=== PATIENT | male | born 1950 | race Caucasian/White ===

== ENCOUNTER 2023-09-12 14:16 | Outpatient (AMB) | payer MEDICARE, OTHER, SELFPAY ==
--- NOTE | 2023-09-12 14:28 | A.OFFPC_ITS ---
Vital Signs 09/12/23 14:34 Height 6 ft Weight 224 lb 6 oz BMI 30.4 BP 126/74 Blood Pressure Location Rt brachial Position Sitting Respiration 16 Pulse 90 Pulse Source Pulse Oximeter Temp 98.1 F Temp Source Oral Pulse Oximetry (%) 98 Oxygen Delivery Method Room Air Intake Visit Reasons: Est Care Back pain Intake Note: New patient visit. 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 Allergies No Known Allergies Allergy (Verified 09/12/23 14:28) Medication List - Last Reconciled 09/12/23 by Trudy Lares MD amlodipine 5 mg PO DAILY atorvastatin 20 mg PO DAILY gabapentin 1 cap oral am, 1 cap oral am afternoon 2 cap oral prior to bed orally 3 times a day; 30 days lisinopril 40 mg PO DAILY prednisone 40 mg (2 x 20 mg) PO DAILY 5 days sertraline 25 mg PO DAILY tramadol 50 mg PO DAILY Tobacco use date assessed: 09/12/23 Fall risk assessment: 1 Fall in past year Last assessed Fall Risk: 09/12/23 Dental Screening Dental Screen Date: 09/12/23 Did you have a dental visit in the last 12 months?: Yes Did you have a dental problem in the last 6 months where you did not have access to dental care?: No Was dental information given to patient?: Patient has dentist HPI HPI Comments History of Present Illness Details The patient is a 73 year old male with a past medical history of hypertension, hyperlipidemia, lumbar ddd, presenting for follow up. CV: on amlodipine 5mg daily, lisinopril 20mg daily. Denies chest pain, exertional dyspnea. No LE edema Patient has had multiple lumbar back surgeries in the past, the most recent with Dr Vergara in 2020. He slipped on the ice three months ago and immediately felt pain in the low back and left buttock. He continues to have left lower back pain with radiation down the left buttock and leg. He is unable to sit for longer than a few minutes. He endorses clumsiness of the left foot which has made him trip on occasion. His left plantar and dorsiflexion are noticeably weak on exam. He has been taking OTC medication with little relief. He has trouble sleeping at night. He denies b/b incontinence. He does endorse increased urination for the past 2-3 months. He has seen urology for this. BH: On zoloft 25mg daily. He is not fond of taking this. Denies SE. [facility] Medical History (Updated 09/12/23 @ 15:49 by Trudy Lares MD) Carpal tunnel syndrome on both sides Family History (Updated 09/12/23 @ 15:19 by Elida Reynoso CMA) Other Substance use Social History (Updated 09/12/23 @ 15:19 by Elida Reynoso CMA) Housing: House Patient Tobacco Use Status: Current everyday Tobacco user Tobacco use type: Cigarette Years Smoked: 56 e-Cigarette/Vaping Use: Never Used Second Hand Smoke Exposure: No service: Yes Current occupational status: employed and retired Current occupation: semi retired Current occupational exposures/hazards: No Cognitive needs: No Hearing needs: No Vision needs: No Questionnaire PHQ-9 Over the last 2 weeks, how often have you been bothered by any of the following problems? 1. Little interest or pleasure in doing things: not at all 2. Feeling down, depressed, or hopeless: not at all 3. Trouble falling or staying asleep, or sleeping too much: not at all 4. Feeling tired or having little energy: not at all 5. Poor appetite or overeating: not at all 6. Feeling bad about yourself - or that you are a failure or have let yourself or your family down: not at all 7. Trouble concentrating on things, such as reading the newspaper or watching television: not at all 8. Moving or speaking so slowly that other people could have noticed. Or the opposite - being so fidgety or restless that you have been moving around a lot more than usual: not at all 9. Thoughts that you would be better off or of hurting yourself in some way: not at all Total score: 0 Depression Screening Interpretation: Negative (neg) Depression Screening Done: Yes 96073 - PHQ-9 Billing: Yes Source: Developed by Drs. Sonido Williamson, Shelia Boles, Barney Alegria and colleagues, with an educational abigail from [employer]. Thrive Questionnaire Date Thrive assessed: 09/12/23 I am a: Patient What is your living situation today?: I have a steady place to live Within the past 12 months, did the food you bought not last and you didn't have the money to get more?: Never true Within the past 12 months, did you worry whether your food would run out before you got money to buy more?: Never true Do you have trouble paying for medicines?: No Do you have trouble getting transportation to medical appointments?: No Do you have trouble paying your heating and electricity bill?: No Do you have trouble taking care of your child, family member or friend?: No Do you have trouble with day-to-day activities such as bathing, preparing meals, shopping, managing finances, etc.?: No Are you currently unemployed and looking for a job?: No Are you interested in more education?: No Please select the resources that you would like help with: None Currently or been in a relationship where the following occur: no concerns reported THRIVE Score: 0 AUDIT C Alcohol Use Questionnaire (AUDIT-C) 1. How often do you have a drink containing alcohol?: Never 3. How often do you have six or more drinks on one occasion?: Never Total Score: 0 CADEN-7 AMB Questionnaire CADEN-7 Date CADEN - 7 assessed: 09/12/23 Feeling nervous, anxious, or on edge: 0 = Not at all Not being able to stop or control worryin = Not at all Worrying too much about different things: 0 = Not at all Trouble relaxin = Not at all Being so restless that it is hard to sit still: 0 = Not at all Becoming easily annoyed or irritable: 0 = Not at all Feeling afraid as if something awful might happen: 0 = Not at all Total CADEN-7 score (0-4 normal; 5-9 mild; 10-14 moderate; 15-21 severe): 0 Source: Developed by Drs. Sonido Williamson, Shelia Boles, Barney Alegria and colleagues, with an educational abigail from [employer]. CADEN-7 Assessment Billing CADEN-7 Assessment Tool: CADEN-7 Assessment 48010 Review of Systems Const Details: ROS CONSTITUTIONAL: Denies weight loss, fever and chills. HEENT: Denies changes in vision and hearing. RESPIRATORY: Denies SOB and cough. CV: Denies palpitations and CP GI: Denies abdominal pain, nausea, vomiting and diarrhea. : Denies dysuria and urinary frequency. MSK: see HPI SKIN: Denies rash and pruritus. NEUROLOGICAL: Denies headache PSYCHIATRIC: Denies recent changes in mood. Physical exam (Primary Care) Vital Signs: Last Vital Signs Temp 98.1 F 09/12/23 14:34 Pulse 90 09/12/23 14:34 Resp 16 09/12/23 14:34 BP 126/74 09/12/23 14:34 Pulse Ox 98 09/12/23 14:34 Oxygen Delivery Method Room Air 09/12/23 14:34 PHYSICAL EXAM: GENERAL: Alert and oriented x 3. NAD EYES: EOMI. Anicteric. HENT: Moist mucous membranes. No scleral icterus. No cervical lymphadenopathy. LUNGS: Clear to auscultation bilaterally. CARDIOVASCULAR: Regular rate and rhythm. No murmur. No JVD. ABDOMEN: Soft, non-tender +bs EXTREMITIES: No edema. Non-tender. SKIN: No rashes or lesions. Warm. NEUROLOGIC: Back nttp, mild SI joint pain on palpation, 2/5 left dorsiflexion, 4/5 left plantar flexion PSYCHIATRIC: Cooperative. Appropriate mood and affect BMI result Body Mass Index 30.4 Tobacco/Smoking Status: Tobacco use Status Tobacco use date assessed 09/12/23 09/12/23 14:37 Patient Tobacco Use Status Current everyday Tobacco 09/12/23 14:37 Tobacco use type Cigarette 09/12/23 14:37 e-Cigarette/Vaping Use Never Used 09/12/23 14:37 PHQ-9: PHQ-9 Score PHQ-9: Total score 0 09/12/23 15:23 Depression Screening Interpretation: Negative (neg) Thrive Assessment: Date of Thrive Assessment Date Thrive assessed 09/12/23 09/12/23 15:23 Currently or been in a relationship where the following occur: no concerns reported Assessment and Plan Assessment & Plan (1) Hypertension: Comment: controlled on current medications. Reduce salt diet recommended Code(s): I10 - Essential (primary) hypertension Qualifiers: Hypertension type: primary hypertension Qualified Code(s): I10 - Essential (primary) hypertension (2) Hyperlipidemia: Comment: continue statin Code(s): E78.5 - Hyperlipidemia, unspecified Qualifiers: Hyperlipidemia type: mixed hyperlipidemia Qualified Code(s): E78.2 - Mixed hyperlipidemia (3) Lumbosacral radiculopathy at L5: Comment: Lumbosacral weakness & pain. History of lumbar surgery. MRI with contrast ordered. Gabapentin sent. Tramadol sparing as needed-discussed SE profile Code(s): M54.17 - Radiculopathy, lumbosacral region Orders: Orders MR lumbar spine w con Today M54.17 - Radiculopathy, lumbosacral region, R35.0 - Frequency of micturition Medications: New gabapentin 1 cap oral am, 1 cap oral am afternoon 2 cap oral prior to bed orally 3 times a day; 30 days 120 caps 3RF tramadol 50 mg PO DAILY 20 tabs 0RF prednisone 40 mg (2 x 20 mg) PO DAILY 5 days 10 tabs 0RF Coding Level of Care Code Est Pt Level 5 (28430) Complex EM visit Add On G2211 Diagnoses Primary hypertension I10 Hypertension type: primary hypertension Mixed hyperlipidemia E78.2 Hyperlipidemia type: mixed hyperlipidemia Lumbosacral radiculopathy at L5 M54.17 Additional Codes CADEN-7 Assessment Billing - CADEN-7 Assessment Tool: CADEN-7 Assessment 51401 ([id number]) Time Spent (min) 52
[2023-09-12 14:34] VITALS: BP 126/74; PULSE 90; RESP 16; TEMP 36.7; O2SAT 98; BMI 30.4
== END 2023-09-12 15:56 | disposition home or self-care (01) ==
PROVIDERS: PCP Internal Medicine; Visit Provider Internal Medicine
DX: I10 Essential (primary) hypertension (principal); E78.2 Mixed hyperlipidemia; M54.17 Radiculopathy, lumbosacral region
CPT/HCPCS: 99215; G2211

== ENCOUNTER 2024-02-03 09:58 | Outpatient (REF) | payer MEDICARE, OTHER, SELFPAY ==
[2024-02-08 13:48] LABS: Cotinine <2 ng/mL; Nicotine <2 ng/mL
== END 2024-02-03 09:59 | disposition home or self-care (01) ==
LOC: HO.WFDLDS 09:58
PROVIDERS: Visit Provider Nurse Practitioner Family
DX: F17.200 Nicotine dependence, unspecified, uncomplicated (principal)
CPT/HCPCS: 36415; 80323

== ENCOUNTER 2024-02-07 08:30 | Outpatient (AMB) | payer MEDICARE, OTHER, SELFPAY ==
[2024-02-07 08:33] VITALS: BP 139/67; PULSE 82; RESP 12; TEMP 36.3; O2SAT 97; BMI 31.5
--- NOTE | 2024-02-07 08:33 | MHC.PC.OV ---
Vital Signs 02/07/24 08:33 Height 6 ft Weight 232 lb BMI 31.5 BP 139/67 Blood Pressure Location Rt brachial Position Sitting Respiration 12 Pulse 82 Pulse Source Pulse Oximeter Temp 97.3 F Temp Source Temporal Artery Scan Pulse Oximetry (%) 97 Oxygen Delivery Method Room Air Intake Visit Reasons: pre op back issues Intake Note: Patient is here for a pre-op exam. Patient needs an ekg and labs completed today. 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 No known CAD, asthma/copd, NICOLETTE, diabetes or CKD. CV: On amlodipine 5mg daily, lisinopril 20mg daily. Blood pressure is adequately controlled. Denies chest pain, exertional dyspnea. No LE edema. EKG sinus bradycardia @ 53 with 1st degree AV block. He can climb 2 flights of stairs without difficulty. Walking is limited by back pain Patient has had multiple lumbar back surgeries in the past, the most recent with Dr Vergara in 2020. He slipped on the ice earlier this and immediately felt pain in the low back and left buttock. He continues to have left lower back pain with radiation down the left buttock and leg. He is unable to sit for longer than a few minutes. He endorses clumsiness of the left foot which has made him trip on occasion. His left plantar and dorsiflexion are noticeably weak on exam. He is currently stable with percocet, gabapentin BH: On zoloft 25mg daily. ROS CONSTITUTIONAL: Denies weight loss, fever and chills. HEENT: Denies changes in vision and hearing. RESPIRATORY: Denies SOB and cough. CV: Denies palpitations and CP GI: Denies abdominal pain, nausea, vomiting and diarrhea. : Denies dysuria and urinary frequency. MSK: Denies new myalgia and joint pain. SKIN: Denies rash and pruritus. NEUROLOGICAL: Denies headache PSYCHIATRIC: Denies recent changes in mood. PHYSICAL EXAM: GENERAL: Alert and oriented x 3. NAD EYES: Anicteric. HENT: Moist mucous membranes. No scleral icterus. No cervical lymphadenopathy. LUNGS: Clear to auscultation bilaterally. CARDIOVASCULAR: Regular rate and rhythm. No murmur. No JVD. ABDOMEN: Soft, non-tender +bs EXTREMITIES: No edema. Non-tender. SKIN: No rashes or lesions. Warm. NEUROLOGIC: No focal neurological deficits. CN II-XII grossly intact PSYCHIATRIC: Cooperative. Appropriate mood and affect [facility] Medical History Carpal tunnel syndrome on both sides Family History Other Substance use Social History Housing: House Patient Tobacco Use Status: Former Tobacco user Years Smoked: 56 e-Cigarette/Vaping Use: Never Used Second Hand Smoke Exposure: No service: Yes Current occupational status: employed and retired Current occupation: semi retired Current occupational exposures/hazards: No Cognitive needs: No Hearing needs: No Vision needs: No Questionnaire PHQ-9 Over the last 2 weeks, how often have you been bothered by any of the following problems? 1. Little interest or pleasure in doing things: not at all 2. Feeling down, depressed, or hopeless: not at all 3. Trouble falling or staying asleep, or sleeping too much: not at all 4. Feeling tired or having little energy: not at all 5. Poor appetite or overeating: not at all 6. Feeling bad about yourself - or that you are a failure or have let yourself or your family down: not at all 7. Trouble concentrating on things, such as reading the newspaper or watching television: not at all 8. Moving or speaking so slowly that other people could have noticed. Or the opposite - being so fidgety or restless that you have been moving around a lot more than usual: not at all 9. Thoughts that you would be better off or of hurting yourself in some way: not at all Total score: 0 Depression Screening Interpretation: Negative (neg) Depression Screening Done: Yes 27867 - PHQ-9 Billing: Yes Source: Developed by Shelia Ceja Kurt Kroenke and colleagues, with an educational abigail from [employer]. Thrive Questionnaire Date Thrive assessed: 02/05/24 I am a: Patient What is your living situation today?: I have a steady place to live Within the past 12 months, did the food you bought not last and you didn't have the money to get more?: Never true Within the past 12 months, did you worry whether your food would run out before you got money to buy more?: Never true Do you have trouble paying for medicines?: No Do you have trouble getting transportation to medical appointments?: No Do you have trouble paying your heating and electricity bill?: No Do you have trouble taking care of your child, family member or friend?: No Do you have trouble with day-to-day activities such as bathing, preparing meals, shopping, managing finances, etc.?: No Are you currently unemployed and looking for a job?: No Are you interested in more education?: No Please select the resources that you would like help with: None Currently or been in a relationship where the following occur: No concerns reported THRIVE Score: 0 AUDIT C Alcohol Use Questionnaire (AUDIT-C) 1. How often do you have a drink containing alcohol?: Never 3. How often do you have six or more drinks on one occasion?: Never Total Score: 0 CADEN-7 AMB Questionnaire CADEN-7 Date CADEN - 7 assessed: 02/07/24 Feeling nervous, anxious, or on edge: 0 = Not at all Not being able to stop or control worryin = Not at all Worrying too much about different things: 0 = Not at all Trouble relaxin = Not at all Being so restless that it is hard to sit still: 0 = Not at all Becoming easily annoyed or irritable: 0 = Not at all Feeling afraid as if something awful might happen: 0 = Not at all Total CADEN-7 score (0-4 normal; 5-9 mild; 10-14 moderate; 15-21 severe): 0 Source: Developed by Shelia Ceja Kurt Kroenke and colleagues, with an educational abigail from [employer]. CADEN-7 Assessment Billing CADEN-7 Assessment Tool: CADEN-7 Assessment 72745 Physical exam (Primary Care) Vital Signs: Last Vital Signs Temp 97.3 F 02/07/24 08:33 Pulse 82 02/07/24 08:33 Resp 12 02/07/24 08:33 BP 139/67 02/07/24 08:33 Pulse Ox 97 02/07/24 08:33 Oxygen Delivery Method Room Air 02/07/24 08:33 BMI result Body Mass Index 31.5 Tobacco/Smoking Status: Tobacco use Status Tobacco use date assessed 02/07/24 02/07/24 08:43 Patient Tobacco Use Status Former Tobacco user 02/07/24 08:43 Tobacco use type 02/07/24 08:43 e-Cigarette/Vaping Use Never Used 02/07/24 08:43 PHQ-9: PHQ-9 Score PHQ-9: Total score 0 02/07/24 09:03 Depression Screening Interpretation: Negative (neg) Thrive Assessment: Date of Thrive Assessment Date Thrive assessed 02/05/24 02/07/24 08:43 Currently or been in a relationship where the following occur: No concerns reported Office Procedures EKG [id number], Complete Assessment and Plan Assessment & Plan (1) Preoperative cardiovascular examination: Code(s): Z01.810 - Encounter for preprocedural cardiovascular examination Plan: 73 y/o male with medical history of lumbosacral pain, hypertension, hyperlipidemia for preoperative cardiac risk assessment No known CAD, CVA, respiratory disease, or CKD. +Qwave on EKG. No exertional dyspnea, chest pain. METS>/=4. Surgery not high risk. RCI 1 for EKG Patient may proceed with surgery as planned. If surgical team wishes they can order preoperative bnp and serial troponins given RCI of 1 with qwave on EKG. No further preoperative testing needed at this time (2) Physical exam: Code(s): Z00.00 - Encounter for general adult medical examination without abnormal findings Plan: Preventive measures for age discussed. Recommend ongoing cessation of tobacco use (3) Lumbosacral radiculopathy at L5: Code(s): M54.17 - Radiculopathy, lumbosacral region Plan: Upcoming surgical procedure scheduled Orders: Orders Comprehensive Met. Panel Today M54.17 - Radiculopathy, lumbosacral region, Z01.810 - Encounter for preprocedural cardiovascular examination Partial Thromboplastin Time Today M54.17 - Radiculopathy, lumbosacral region, Z01.810 - Encounter for preprocedural cardiovascular examination Prothrombin Time INR Today M54.17 - Radiculopathy, lumbosacral region, Z01.810 - Encounter for preprocedural cardiovascular examination Lipid Panel Today M54.17 - Radiculopathy, lumbosacral region, Z01.810 - Encounter for preprocedural cardiovascular examination AMB EKG-In Office Today Z01.818 - Encounter for other preprocedural examination Complete Blood Count Auto Diff Today M54.17 - Radiculopathy, lumbosacral region, Z01.810 - Encounter for preprocedural cardiovascular examination Prostate Specific Antigen Today M54.17 - Radiculopathy, lumbosacral region, Z01.810 - Encounter for preprocedural cardiovascular examination NT-proBNP Today Z01.810 - Encounter for preprocedural cardiovascular examination Coding Level of Care Code Est Pt Level 4 (77060) New Pt Prev Care >65yr (66021) Diagnoses Preoperative cardiovascular examination Z01.810 Physical exam Z00.00 Lumbosacral radiculopathy at L5 M54.17 CPT Codes EKG - CPT: 01308-[id number], Complete ([id number]) Additional Codes CADEN-7 Assessment Billing - CADEN-7 Assessment Tool: CADEN-7 Assessment 11145 ([id number])
== END 2024-02-07 11:20 | disposition home or self-care (01) ==
PROVIDERS: PCP Internal Medicine; Visit Provider Internal Medicine
DX: Z01.818 Encounter for other preprocedural examination (principal); M54.17 Radiculopathy, lumbosacral region

== ENCOUNTER → 2024-02-07 08:30 | Outpatient (BNVA) | payer MEDICARE, OTHER, SELFPAY | PROVIDERS: PCP Internal Medicine; Visit Provider Internal Medicine | DX: Z01.810 Encounter for preprocedural cardiovascular examination (principal); Z00.00 Encounter for general adult medical examination without abnormal findings; M54.17 Radiculopathy, lumbosacral region | CPT/HCPCS: 93005; 96127; 99212 ==

== ENCOUNTER 2024-04-27 10:21 | Outpatient (AMB) | payer MEDICARE, OTHER, SELFPAY ==
[2024-04-27 10:26] VITALS: BP 122/74; PULSE 87; O2SAT 98; BMI 31.4
--- NOTE | 2024-04-27 10:26 | MHC.PC.OV ---
Vital Signs 04/27/24 10:26 Height 6 ft Weight 231 lb 6 oz BMI 31.4 BP 122/74 Blood Pressure Location Rt brachial Position Sitting Pulse 87 Pulse Source Pulse Oximeter Pulse Oximetry (%) 98 Oxygen Delivery Method Room Air Intake Visit Reasons: 6 mth f/u weston 02/27 Allergies No Known Allergies Allergy (Verified 04/27/24 10:29) Tobacco use date assessed: 04/27/24 Fall risk assessment: No Falls in past year Last assessed Fall Risk: 04/27/24 Dental Screening Dental Screen Date: 04/27/24 Did you have a dental visit in the last 12 months?: No Did you have a dental problem in the last 6 months where you did not have access to dental care?: No Was dental information given to patient?: Patient has dentist HPI HPI Comments History of Present Illness Details The patient is a 73 year old male with a past medical history of hypertension, hyperlipidemia, lumbar ddd, presenting for follow up CV: On amlodipine 5mg daily, lisinopril 20mg daily. Blood pressure is adequately controlled. Denies chest pain, exertional dyspnea. No LE edema. EKG sinus bradycardia @ 53 with 1st degree AV block. He can climb 2 flights of stairs without difficulty. Walking is limited by back pain MSK: Back Surgery 01/2024 went well. Going for physical therapy at [facility]. Using tylenol and ibuprofen. Patient has had multiple lumbar back surgeries in the past- Dr Vergara in 2020. He slipped on the ice earlier this and immediately felt pain in the low back and left buttock. He continues to have left lower back pain with radiation down the left buttock and leg. He is unable to sit for longer than a few minutes. He endorses clumsiness of the left foot which has made him trip on occasion. His left plantar and dorsiflexion are noticeably weak on exam. He is currently stable with percocet, gabapentin BH: On zoloft 25mg daily. ROS CONSTITUTIONAL: Denies weight loss, fever and chills. HEENT: Denies changes in vision and hearing. RESPIRATORY: Denies SOB and cough. CV: Denies palpitations and CP GI: Denies abdominal pain, nausea, vomiting and diarrhea. : Denies dysuria and urinary frequency. MSK: Denies new myalgia and joint pain. SKIN: Denies rash and pruritus. NEUROLOGICAL: Denies headache PSYCHIATRIC: Denies recent changes in mood. PHYSICAL EXAM: GENERAL: Alert and oriented x 3. NAD EYES: Anicteric. HENT: Moist mucous membranes. No scleral icterus. No cervical lymphadenopathy. LUNGS: Clear to auscultation bilaterally. CARDIOVASCULAR: Regular rate and rhythm. No murmur. No JVD. ABDOMEN: Soft, non-tender +bs EXTREMITIES: No edema. Non-tender. SKIN: No rashes or lesions. Warm. NEUROLOGIC: No focal neurological deficits. CN II-XII grossly intact PSYCHIATRIC: Cooperative. Appropriate mood and affect [facility] Medical History Carpal tunnel syndrome on both sides Family History Other Substance use Social History Housing: House Patient Tobacco Use Status: Former Tobacco user Years Smoked: 56 e-Cigarette/Vaping Use: Never Used Second Hand Smoke Exposure: No service: Yes Current occupational status: employed and retired Current occupation: semi retired Current occupational exposures/hazards: No Cognitive needs: No Hearing needs: No Vision needs: No Questionnaire PHQ-9 Over the last 2 weeks, how often have you been bothered by any of the following problems? 1. Little interest or pleasure in doing things: not at all 2. Feeling down, depressed, or hopeless: not at all 3. Trouble falling or staying asleep, or sleeping too much: not at all 4. Feeling tired or having little energy: not at all 5. Poor appetite or overeating: not at all 6. Feeling bad about yourself - or that you are a failure or have let yourself or your family down: not at all 7. Trouble concentrating on things, such as reading the newspaper or watching television: not at all 8. Moving or speaking so slowly that other people could have noticed. Or the opposite - being so fidgety or restless that you have been moving around a lot more than usual: not at all 9. Thoughts that you would be better off or of hurting yourself in some way: not at all Total score: 0 Depression Screening Interpretation: Negative (neg) Depression Screening Done: Yes 47320 - PHQ-9 Billing: Yes Source: Developed by Drs. Sonido Williamson, Barney Glover and colleagues, with an educational abigail from [employer]. Thrive Questionnaire Date Thrive assessed: 02/05/24 I am a: Patient What is your living situation today?: I have a steady place to live Within the past 12 months, did the food you bought not last and you didn't have the money to get more?: Never true Within the past 12 months, did you worry whether your food would run out before you got money to buy more?: Never true Do you have trouble paying for medicines?: No Do you have trouble getting transportation to medical appointments?: No Do you have trouble paying your heating and electricity bill?: No Do you have trouble taking care of your child, family member or friend?: No Do you have trouble with day-to-day activities such as bathing, preparing meals, shopping, managing finances, etc.?: No Are you currently unemployed and looking for a job?: No Are you interested in more education?: No Please select the resources that you would like help with: None Currently or been in a relationship where the following occur: No concerns reported THRIVE Score: 0 AUDIT C Alcohol Use Questionnaire (AUDIT-C) 1. How often do you have a drink containing alcohol?: Never 3. How often do you have six or more drinks on one occasion?: Never Total Score: 0 CADEN-7 AMB Questionnaire CADEN-7 Date CADEN - 7 assessed: 04/27/24 Feeling nervous, anxious, or on edge: 0 = Not at all Not being able to stop or control worryin = Not at all Worrying too much about different things: 0 = Not at all Trouble relaxin = Not at all Being so restless that it is hard to sit still: 0 = Not at all Becoming easily annoyed or irritable: 0 = Not at all Feeling afraid as if something awful might happen: 0 = Not at all Total CADEN-7 score (0-4 normal; 5-9 mild; 10-14 moderate; 15-21 severe): 0 Source: Developed by Shelia Ceja Kurt Kroenke and colleagues, with an educational abigail from [employer]. CADEN-7 Assessment Billing CADEN-7 Assessment Tool: CADEN-7 Assessment 40472 Physical exam (Primary Care) Vital Signs: Last Vital Signs Pulse 87 04/27/24 10:26 BP 122/74 04/27/24 10:26 Pulse Ox 98 04/27/24 10:26 Oxygen Delivery Method Room Air 04/27/24 10:26 BMI result Body Mass Index 31.4 Tobacco/Smoking Status: Tobacco use Status Tobacco use date assessed 04/27/24 04/27/24 10:32 Patient Tobacco Use Status Former Tobacco user 04/27/24 10:32 Tobacco use type 02/13/24 13:20 e-Cigarette/Vaping Use Never Used 04/27/24 10:32 PHQ-9: PHQ-9 Score PHQ-9: Total score 0 04/27/24 10:58 Depression Screening Interpretation: Negative (neg) Thrive Assessment: Date of Thrive Assessment Date Thrive assessed 02/05/24 04/27/24 10:32 Currently or been in a relationship where the following occur: No concerns reported Coding Level of Care Code Est Pt Level 4 (06544) Diagnoses Lumbosacral radiculopathy at L5 M54.17 Primary hypertension I10 Hypertension type: primary hypertension Additional Codes CADEN-7 Assessment Billing - CADEN-7 Assessment Tool: CADEN-7 Assessment 02867 ([id number]) PHQ-9 - 82399 - PHQ-9 Billing: Yes ([id number]) Assessment & Plan Assessment & Plan (1) Lumbosacral radiculopathy at L5: Code(s): M54.17 - Radiculopathy, lumbosacral region Category: Medical Plan: Improved back pain following surgery. Can continue prn gabapentin before bed (2) Hypertension: Code(s): I10 - Essential (primary) hypertension Category: Medical Qualifiers: Hypertension type: primary hypertension Qualified Code(s): I10 - Essential (primary) hypertension Plan: Controlled on current medication Low salt diet Medications: Refilled gabapentin 1 cap oral am, 1 cap oral am afternoon 2 cap oral prior to bed orally 3 times a day; 30 days 120 caps 3RF
== END 2024-04-27 11:00 | disposition home or self-care (01) ==
PROVIDERS: PCP Internal Medicine; Visit Provider Internal Medicine
DX: M54.17 Radiculopathy, lumbosacral region (principal); I10 Essential (primary) hypertension

== ENCOUNTER → 2024-04-27 10:21 | Outpatient (BNVA) | payer MEDICARE, OTHER, SELFPAY | PROVIDERS: PCP Internal Medicine; Visit Provider Internal Medicine | DX: I10 Essential (primary) hypertension (principal); M54.16 Radiculopathy, lumbar region | CPT/HCPCS: 96127; 99212 ==

== ENCOUNTER 2024-10-22 09:59 | Outpatient (REF) | payer MEDICARE, OTHER, SELFPAY ==
[2024-10-22 11:28] LABS: MANUAL DIFF FLAG NO
[2024-10-22 11:52] LABS: Basophils Absolute Auto 0.1 X10*3/uL (0.0-0.2); Basophils Percent Auto 0.8 % (0-2); Eosinophils Absolute Auto 0.4 X10*3/uL (0.0-0.4); Hematocrit 42.2 % (42.0-52.0); Hemoglobin 14.5 g/dl (14.0-18.0); Imm Gran Abs Auto 0.03 X10*3/uL (0.00-0.03); Imm Gran Pct Auto 0.4 % (0.0-0.4); Lymphocytes Absolute Auto 2.1 X10*3/uL (1.2-4.9); Lymphocytes Percent Auto 29.1 % (20-40); Mean Corpuscular HGB Conc 34.4 g/dl (31.0-36.0); Mean Corpuscular Hemoglobin 30.7 pg (27.0-33.0); Mean Corpuscular Volume 89.2 fL (80.0-98.0); Mean Platelet Volume 10.8 fL (9.4-12.4); Monocytes Absolute Auto 0.6 X10*3/uL (0.1-1.2); Monocytes Percent Auto 8.1 % (2-11); Neutrophils Percent Auto 56.6 % (45-73); Platelet Count 263 X10*3/uL (160-400); Red Blood Count 4.73 X10*6/uL (4.60-5.80); Red Cell Distribution Width 13.9 % (11.0-16.0); White Blood Count 7.2 X10*3/uL (4.8-10.8)
[2024-10-22 11:56] LABS: Prothrombin Time 11.1 SEC (10.9-12.4)
[2024-10-22 11:59] LABS: Partial Thromboplastin Time 30.8 SEC (26.0-36.8)
[2024-10-22 12:26] LABS: Alanine Aminotransferase 39 U/L (0-40); Albumin Level 4.2 g/dL (3.5-5.0); Alkaline Phosphatase 88 U/L (39-117); Anion Gap 11 (12-20); Aspartate Amino Transferase 49 U/L (5-37); Bilirubin Total 0.8 mg/dL (0.0-1.0); Blood Urea Nitrogen 20 mg/dL (9-16); Calcium 9.9 mg/dL (8.4-10.2); Carbon Dioxide 24 mmol/L (22-29); Chloride 111 mmol/L (96-108); Cholesterol 114 mg/dL (<200); Estimated Glomerular Filt Rate > 60; Glucose Random 88 mg/dL (60-115); HDL Cholesterol 37 mg/dL (>40); LDL Cholesterol Calculated 63 mg/dL (<100); Sodium 142 mmol/L (135-145); Total Protein 6.6 g/dL (6.5-8.0); Triglycerides 73 mg/dL (<150)
[2024-10-22 12:46] LABS: Prostate Specific Antigen 4.59 ng/mL (<0.05-4.0)
[2024-10-23 06:58] LABS: NT-proBNP 91 pg/mL (<125)
== END 2024-10-22 10:00 | disposition home or self-care (01) ==
LOC: HO.WFDLDS 09:59
PROVIDERS: Visit Provider Internal Medicine
DX: Z01.810 Encounter for preprocedural cardiovascular examination (principal); M54.17 Radiculopathy, lumbosacral region; Z12.5 Encounter for screening for malignant neoplasm of prostate
CPT/HCPCS: 36415; 80053; 80061; 83880; 84153; 85025; 85610; 85730

== ENCOUNTER 2024-10-26 08:27 | Outpatient (AMB) | payer MEDICARE, OTHER, SELFPAY ==
--- NOTE | 2024-10-26 08:31 | AM.OFFVISMDC ---
Intake Vital Signs 10/26/24 08:46 Height 6 ft Weight 228 lb BMI 30.9 BP 120/70 Blood Pressure Location Rt brachial Position Sitting Pulse 72 Pulse Source Pulse Oximeter Temp 97.8 F Temp Source Temporal Artery Scan Pulse Oximetry (%) 97 Oxygen Delivery Method Room Air Intake Visit Reasons: cpe/awv Intake Note: Sonido presents in the office today for his medicare wellness visit. Allergies No Known Allergies Allergy (Verified 10/26/24 08:35) Do you need a note to return to daycare/school/sports/work: No HPI HPI Comments History of Present Illness Details The patient is a 74 year old male with a past medical history of hypertension, hyperlipidemia, lumbar ddd, presenting for a medical wellness visit. Accompanied by his . CV: On amlodipine 5mg daily, lisinopril 40mg daily. Blood pressure is adequately controlled. Denies chest pain, exertional dyspnea. No LE edema. Exercise is limited by back pain. MSK: Back Surgery 01/2024 in [place] went well, but he has plateaued with physical therapy progress. They are going to be contacting his surgeon in [place]. Using tylenol and ibuprofen. LFT elevated. Patient has had multiple lumbar back surgeries in the past- Dr Vergara in 2020. He is on gabapentin. Previously prescribed oxycodone by PCP and is requesting a refill. BH: On zoloft 25mg daily. Elevated PSA: referred to urology by PCP this month. Reports being seen by urology for this in the past. He denies genitourinary symptoms. Tdap-due and declined Eye exam: overdue Dental exam: up to date Colonoscopy: every [address] Flores due to history of polyps ROS: Constitutional: No unexplained weight loss, fever, chills, fatigue or night sweats. Eyes: No vision changes, blurry vision, double vision, eye pain, eye redness, eye discharge. ENT: No hearing loss, sneezing, congestion, runny nose or sore throat. Respiratory: No shortness of breath, cough or sputum production. Cardiovascular: No chest pain, chest pressure or chest discomfort. No palpitations or pedal edema. Gastrointestinal: No anorexia, nausea, vomiting or diarrhea. No abdominal pain or blood in stool. Genitourinary: No dysuria, hematuria, urinary frequency. Denies nocturia or stream hesitancy. Neurologic: No headache, dizziness, syncope, no loss of bowel or bladder control or numbness or tingling in the groin Musculoskeletal: see HPI Hematologic/Lymphatics: No bleeding or bruising. No painful lymph nodes. Endocrine: No cold or heat intolerance. No polyuria or polydipsia. Psychiatric: see HPI Physical exam: Constitutional: Alert, in no distress. Head: Normocephalic. Eyes: Pupils are equal, round and reactive to light. Extraocular muscles intact. Ear, Nose and Throat: Canals clear. TMs normal. Normal nasal mucosa. No nasal discharge. No oral lesions. Neck: Supple, Full range of motion. No lymphadenopathy. No palpable thyroid masses. Respiratory: Clear to auscultation. Cardiovascular: S1 S2 regular. No murmurs. No carotid bruits. Gastrointestinal: Abdomen soft, non-tender, non-distended. Normal bowel sounds. No palpable masses. Skin: No rashes Extremities: Warm and well perfused. No clubbing, cyanosis or edema. Psychiatric: Normal mood and affect [facility] Medical History (Updated 10/26/24 @ 08:57 by JENNIFER Brasher) Elevated LFTs Medicare annual wellness visit, subsequent Carpal tunnel syndrome on both sides Family History Other Substance use Social History (Updated 10/26/24 @ 08:38 by hCio Olvera MA) Housing: House Alcohol intake: never Patient Tobacco Use Status: Current everyday Tobacco user Years Smoked: 56 e-Cigarette/Vaping Use: Never Used Second Hand Smoke Exposure: No service: Yes Current occupational status: employed and retired Current occupation: semi retired Current occupational exposures/hazards: No Cognitive needs: No Hearing needs: No Vision needs: No Questionnaire Medicare Wellness Checkup [age] What gender do you identify with?: male During the past 4 weeks, how much have you been bothered by emotional problems such as feeling anxious, depressed, irritable, sad or downhearted, and blue?: not at all During the past 4 weeks, has your physical & emotional health limited your social activities with family, friends, neighbors, or groups?: not at all During the past 4 weeks, how much bodily pain have you generally had?: severe pain During the past 4 weeks, was someone available to help you if you needed & wanted help?: yes, as much as I wanted During the past 4 weeks, what was the hardest physical activity you could do for at least 2 minutes?: heavy Can you get to places out of walking distance without help? (For eg., can you travel alone on buses, taxis or drive your car?): No Can you go shopping for groceries or clothes without someone's help?: Yes Can you prepare your own meals?: Yes Can you do your housework without help?: Yes Because of any health problems, do you need the help of another person with your personal care needs such as eating, bathing, dressing or getting around the house?: Yes Can you handle your own money without help?: Yes During the past 4 weeks, how would you rate your health in general?: good During the past 4 weeks how have things been going for you?: pretty well Are you having difficulties driving your car?: no Do you always fasten your seat belt when you are in a car?: yes, usually During past 4 weeks, have you been bothered by the following: never: Falling or dizzy when standing up, Trouble eating well?, Teeth or denture problems? and Tiredness or fatigue? and seldom: Sexual problems? Have you fallen 2 or more times in the past year?: Yes Are you afraid of falling?: No Are you a smoker?: yes, and I might quit During the past 4 weeks, how many drinks of wine, beer, or other alcoholic beverages did you have?: no alcohol at all Do you exercise for about 20 minutes 3 or more times a week?: yes, some of the time Have you been given information to help with the following?: yes: Keeping track of your medications? and no: Hazards in your house that might hurt you? How often do you have trouble taking medicines the way you have been told to take them?: I always take medicine as prescribed How confident are you that you can control & manage most of your health problems?: not very confident What is your race?: White Mini Mental State Exam (MMSE) Orientation What is the (year) (season) (date) (day) (month)?: year Where are we (state) (county) (town or city) (hospital) (floor)?: state Registration Name of 3 unrelated objects clearly and slowly, then ask patient to repeat all 3 of them. (1st repeat determines score. Make sure they can repeat all three): object 1, object 2 and object 3 Attention & Calculation (CHOOSE ONE) Spell WORLD backwards (DLROW): 5 letters Recall Ask patient to repeat the 3 items from question #3.: object 1, object 2 and object 3 Language Show patient a wristwatch & ask what it is. Repeat for pencil.: watch and pencil Ask the patient to repeat the phrase 'No ifs, ands, or buts' after you.: correct Ask the patient to 'take a piece of paper with their right hand' 'fold paper in half' 'place paper on floor': take paper in right hand, fold paper in half and place paper on floor Print the sentence 'CLOSE YOUR EYES' on a piece. If patient actually closes eyes then score.: followed written direction Give patient a blank piece of paper & ask to write a sentence. Score if it contains a noun & verb.: sentence contains subject and verb Ask patient to copy figure of intersecting pentagons exactly. Score if all 10 angles & 2 intersects are included.: all 10 angles present & 2 are intersected Score Score: 22 Activity of Daily Living Bathing - sponge bath, tub bath or shower: receives no assistance (gets in/out by self, if usual bathing means Dressing - getting clothes from closets & drawers, including inner/outer garments & fasteners.: gets clothes & gets completely dressed without help Toileting - going to the 'toilet room' for urine/bowel elimination & cleaning self/arranging clothes: goes to toilet room, cleans self, arranges clothes without help Transfer: moves in & out of bed and chair without help (may use support object) Continence: controls urination/bowel movements completely by self Feeding: feeds self without help Total Score: 0 Information obtained from: patient Using telephone: independent Traveling: independent Shopping: independent Preparing meals: independent Housework: independent Taking medicine: independent Managing money: independent PHQ-9 Over the last 2 weeks, how often have you been bothered by any of the following problems? 1. Little interest or pleasure in doing things: not at all 2. Feeling down, depressed, or hopeless: not at all 3. Trouble falling or staying asleep, or sleeping too much: not at all 4. Feeling tired or having little energy: not at all 5. Poor appetite or overeating: not at all 6. Feeling bad about yourself - or that you are a failure or have let yourself or your family down: not at all 7. Trouble concentrating on things, such as reading the newspaper or watching television: not at all 8. Moving or speaking so slowly that other people could have noticed. Or the opposite - being so fidgety or restless that you have been moving around a lot more than usual: not at all 9. Thoughts that you would be better off or of hurting yourself in some way: not at all Total score: 0 Depression Screening Interpretation: Negative Depression Screening Done: Yes 98105 - PHQ-9 Billing: Yes Source: Developed by Drs. Sonido Williamson, Shelia Boles, Barney Alegria and colleagues, with an educational abigail from [employer]. Physical Exam Vital Signs: Last Vital Signs Temp 97.8 F 10/26/24 08:46 Pulse 72 10/26/24 08:46 BP 120/70 10/26/24 08:46 Pulse Ox 97 10/26/24 08:46 Oxygen Delivery Method Room Air 10/26/24 08:46 BMI result Body Mass Index 30.9 Assessment & Plan Assessment & Plan (1) Medicare annual wellness visit, subsequent: Code(s): Z00.00 - Encounter for general adult medical examination without abnormal findings Plan: As part of this visit we reviewed the following issues, which are considered and essential part of preventative health in this age group: - Screening for colon cancer - Discussed Prostate cancer screening - Blood pressure screening - Cholesterol screening - Nutritional and exercise counseling - Counseling of injury prevention including fire prevention, smoke alarms and seat belt usage - Recommendations about immunizations - Recommendation of an eye exam - Screening for substance abuse (2) Elevated PSA: Code(s): R97.20 - Elevated prostate specific antigen [PSA] Plan: Refer to Urology. (3) Elevated LFTs: Code(s): R79.89 - Other specified abnormal findings of blood chemistry Plan: Decrease processed and high cholesterol foods. Avoid alcohol. Recheck in 1 month. Try to decrease tryf-udh-snhqkmy pain medication use. Orders: Orders Aspartate Amino Transferase 10/26/24 R79.89 - Other specified abnormal findings of blood chemistry Alanine Aminotransferase 10/26/24 R79.89 - Other specified abnormal findings of blood chemistry Medications: New oxycodone Partial Fill upon patient request. 5 mg PO Q8H PRN 30 tabs 0RF pain Quality Reporting (2019) Depression/Bipolar (159/160/161/177) PHQ-9: Total score: 0 Coding Level of Care Code Medicare Subsequent (G0439) Diagnoses Medicare annual wellness visit, subsequent Z00.00 Elevated PSA R97.20 Elevated LFTs R79.89 Additional Codes PHQ-9 - 85174 - PHQ-9 Billing: Yes ([id number])
--- OUTSIDE RECORDS SUMMARY | 2024-10-26 08:34 | XMS_ITS | Clinical Summary ---
Author Organization [facility] Address [address] [place] [address] Care Team Providers Care Merchandising Coordinator Name Role Phone Krupa Castaneda MD Primary Care Provider [phone]- [phone] Surgical History Surgery Date Site/Laterality Comments COLONOSCOPY 02/26/11 PROCEDURE: HISTORICAL COLONOSCOPY BACK SURGERY 1977; 2009, 2012, 2016 PROCEDURE: HISTORICAL BACK SURGERY; COMMENT: discectomy; Dr. Vergara NECK SURGERY 1998; 1999 PROCEDURE: HISTORICAL NECK SURGERY; COMMENT: discectomy, spinal fusion SHOULDER SURGERY 2013 Right PROCEDURE: HISTORICAL SHOULDER SURGERY; COMMENT: rotator cuff HERNIA REPAIR 02/02 Bilateral PROCEDURE: HISTORICAL HERNIA REPAIR/ING; COMMENT: Dr. King Medical History Medical History Date Comments Foreign body in respiratory tree, unspecified DX:Foreign body in respirato ry tree, unspecified Unspecified asthma(493.90) DX:Un specified asthma(493.90) Backache, unspecified DX:Backach e, unspecified Chest pain, unspecified DX:Chest pain, unspecified Lipoma of unspecified site DX:Li jacquelin of unspecified site Lumbago DX:Lumbago Tobacco use disorder DX:Tobacco use disorder Elevated blood pressure read ing without diagnosis of hypertension DX:Elevated blood pr essure reading without diagnosis of hypertension Pulmonary nodules DX:Pulmonary n odules; COMMENT: stable; has had for years Lumbar radicular pain 12/04/2013 DX:Lumbar radicular pain History of back surgery 12/04/2013 DX:Histo ry of back surgery History of renal stone 07/08/2015 DX:Histor y of renal stone Family History Medical History Relation Name Comments Other: cirrhosisi Mother Hypertension Sister 1 Relation Name Status Comments Brother (Age [place]) half broth er; [place]; h/o rheumatic fever Father (Age 65) [place] Mother (Age 60) liver cirr hosis Sister 1 Sister 2 Alive HTN Sister 3 (Age 70) half siste r; cancer - ?type Son 1 Alive Son 2 Alive Son 3 Alive Social History Tobacco Use Types Packs/Day Years Used Date Smoking Tobacco: Former Cigarettes Q uit: 10/25/2015 Smokeless Tobacco: Never Alcohol Use Standard Drinks/Week Comments No 0 (1 standard drink = 0.6 oz pur e alcohol) Sex and Gender Information Value Date Recorded Sex Assigned at Not on file Legal Sex Male 7:15 AM EST Gender Identity Not on file Sexual Orientation Not on file Obstetrics History Plan of Treatment Health Maintenance Due Date Last Done Comments Zoster Vaccines (2 of 3) 04/08/2012 02/12/2012 Abdominal Aortic Aneurysm (AAA) Screen 04/22/2022 Cholesterol Screening (Lipid Panel) 04/22/2022 Colorectal Cancer Screening: Colonoscopy 04/22/2022 Depression Screening 04/22/2022 Falls Risk Assessment 04/22/2022 Hepatitis C Screening 04/22/2022 Lung Cancer Screening (Low Dose CT) 04/22/2022 Medicare Annual Wellness Visit 04/22/2022 Social Influencers of Health Screening 04/22/2022 Hypertension/CHF/CAD Annual BMP Blood Test 04/29/2022 DTaP,Tdap,and Td Vaccines (2 - Td or Tdap) 12/05/2023 12/04/2013 COVID-19 Vaccine ( - season) 2024 Influenza Vaccine (Season Ended) 2025 03/20/2022, 02/20/2021, 02/17/2021, Additional history exists RSV Immunization Adult Patients (1 - 1-dose 75+ series) 2027 Pneumococcal Vaccine: 50+ Years Completed 04/02/2020, 03/14/2018, 03/15/2014 HIB Vaccines Aged Out No longer eligi ble based on patient's age to complete this topic HPV Vaccines Aged Out No longer eligi ble based on patient's age to complete this topic Hepatitis A Vaccines Aged Out No long er eligible based on patient's age to complete this topic Hepatitis B Vaccines Aged Out No long er eligible based on patient's age to complete this topic IPV Vaccines Aged Out No longer eligi ble based on patient's age to complete this topic MMR Vaccines Aged Out No longer eligi ble based on patient's age to complete this topic Meningococcal ACWY Vaccine Aged Out N o longer eligible based on patient's age to complete this topic Meningococcal B Vaccine Aged Out No l onger eligible based on patient's age to complete this topic RSV Immunization Patients Under 20 months Aged Out No longer eligible based on patient's age to complete this topic Varicella Vaccines Aged Out No longer eligible based on patient's age to complete this topic Care Teams Merchandising Coordinator Relationship Specialty Start Date End Date Krupa Castaneda MD PCP - General Internal Medicine 05/18/16
[2024-10-26 08:46] VITALS: BP 120/70; PULSE 72; TEMP 36.6; O2SAT 97; BMI 30.9
== END 2024-10-26 09:12 | disposition home or self-care (01) ==
LOC: HO.HMCFM 08:28
PROVIDERS: PCP Internal Medicine; Visit Provider Physician Assistant Medical
DX: Z00.00 Encounter for general adult medical examination without abnormal findings (principal); R97.20 Elevated prostate specific antigen [PSA]; R79.89 Other specified abnormal findings of blood chemistry

== ENCOUNTER → 2024-10-26 08:27 | Outpatient (BNVA) | payer MEDICARE, OTHER, SELFPAY | PROVIDERS: PCP Internal Medicine; Visit Provider Physician Assistant Medical | DX: Z00.00 Encounter for general adult medical examination without abnormal findings (principal); R97.20 Elevated prostate specific antigen [PSA]; R79.89 Other specified abnormal findings of blood chemistry | CPT/HCPCS: 96127 ==

== ENCOUNTER 2025-03-02 09:16 | Outpatient (AMB) | payer MEDICARE, OTHER, SELFPAY ==
--- NOTE | 2025-03-02 09:21 | A.OFFPC_ITS ---
Vital Signs 03/02/25 09:23 Height 6 ft Weight 225 lb 6 oz BMI 30.6 BP 98/70 Blood Pressure Location Lt brachial Position Sitting Respiration 14 Pulse 69 Pulse Source Pulse Oximeter Pulse Oximetry (%) 95 Oxygen Delivery Method Room Air Intake Visit Reasons: with Dr. Lares follow up Intake Note: Follow up. Hcc Coders Required: No Allergies No Known Allergies Allergy (Verified 03/02/25 09:21) Tobacco use date assessed: 03/02/25 Fall risk assessment: No Falls in past year Last assessed Fall Risk: 03/02/25 Dental Screening Dental Screen Date: 03/02/25 Did you have a dental visit in the last 12 months?: No Did you have a dental problem in the last 6 months where you did not have access to dental care?: No Was dental information given to patient?: Patient declined HPI HPI Comments History of Present Illness Details The patient is a 74 year old male with a past medical history of hypertension, hyperlipidemia, lumbar ddd, presenting for follow upAccompanied by his . CV: On amlodipine 5mg daily, lisinopril 40mg daily. Blood pressure is adequately controlled. Denies chest pain, exertional dyspnea. Denies LE edema. MSK: Back Surgery 01/2024 in [place] went well, but per his he was recommended to have follow up surgery. Contnue to follow there prn. Using tylenol and ibuprofen. LFT elevated. Patient has had multiple lumbar back crawford rgeries in the past- Dr Vergara in 2020. He is on gabapentin. Previously prescribed oxycodone by PCP and is requesting a refill. BH: stable zoloft 25mg daily. Elevated PSA: referred to urology -he had a disagreement before being seen by office staff (Taran). Ask for monitor and referral to [facility] is increases. Reports being seen by urology for this in the past. He denies genitourinary symptoms. Tdap-due and declined Eye exam: overdue Dental exam: up to date Colonoscopy: every [address] Flores due to history of polyps ROS CONSTITUTIONAL: Denies weight loss, fever and chills. HEENT: Denies changes in vision and hearing. RESPIRATORY: Denies SOB and cough. CV: Denies palpitations and CP GI: Denies abdominal pain, nausea, vomiting and diarrhea. : Denies dysuria and urinary frequency. MSK: Denies new myalgia and joint pain. SKIN: Denies rash and pruritus. NEUROLOGICAL: Denies headache PSYCHIATRIC: Denies recent changes in mood. PHYSICAL EXAM: GENERAL: Alert and oriented x 3. NAD EYES: EOMI. Anicteric. HENT: Moist mucous membranes. No scleral icterus. No cervical lymphadenopathy. LUNGS: Clear to auscultation bilaterally. CARDIOVASCULAR: Regular rate and rhythm. No murmur. No JVD. ABDOMEN: Soft, non-tender +bs EXTREMITIES: No edema. Non-tender. SKIN: No rashes or lesions. Warm. NEUROLOGIC: No focal neurological deficits. CN II-XII grossly intact PSYCHIATRIC: Cooperative. Appropriate mood and affect [facility] Medical History (Updated 10/26/24 @ 08:57 by JENNIFER Brasher) Elevated LFTs Medicare annual wellness visit, subsequent Carpal tunnel syndrome on both sides Family History Other Substance use Social History (Updated 03/02/25 @ 09:26 by Elida Reynoso CMA) Housing: House Alcohol intake: never Patient Tobacco Use Status: Current everyday Tobacco user Cigarette Packs Per Day: 1 Years Smoked: 56 e-Cigarette/Vaping Use: Never Used Second Hand Smoke Exposure: No service: Yes Current occupational status: employed and retired Current occupation: semi retired Current occupational exposures/hazards: No Cognitive needs: No Hearing needs: No Vision needs: No Questionnaire PHQ-9 Over the last 2 weeks, how often have you been bothered by any of the following problems? 1. Little interest or pleasure in doing things: not at all 2. Feeling down, depressed, or hopeless: not at all 3. Trouble falling or staying asleep, or sleeping too much: not at all 4. Feeling tired or having little energy: not at all 5. Poor appetite or overeating: not at all 6. Feeling bad about yourself - or that you are a failure or have let yourself or your family down: not at all 7. Trouble concentrating on things, such as reading the newspaper or watching television: not at all 8. Moving or speaking so slowly that other people could have noticed. Or the opposite - being so fidgety or restless that you have been moving around a lot more than usual: not at all 9. Thoughts that you would be better off or of hurting yourself in some way: not at all Total score: 0 Source: Developed by Drs. Sonido Williamson, Shelia Boles, Barney Alegria and colleagues, with an educational abigail from [employer]. Thrive Questionnaire Date Thrive assessed: 10/26/24 I am a: Patient What is your living situation today?: I have a steady place to live Within the past 12 months, did the food you bought not last and you didn't have the money to get more?: Never true Within the past 12 months, did you worry whether your food would run out before you got money to buy more?: Never true Do you have trouble paying for medicines?: No Do you have trouble getting transportation to medical appointments?: No Do you have trouble paying your heating and electricity bill?: No Do you have trouble taking care of your child, family member or friend?: No Do you have trouble with day-to-day activities such as bathing, preparing meals, shopping, managing finances, etc.?: No Are you currently unemployed and looking for a job?: No Are you interested in more education?: No Please select the resources that you would like help with: None Currently or been in a relationship where the following occur: No concerns reported THRIVE Score: 0 AUDIT C Alcohol Use Questionnaire (AUDIT-C) 1. How often do you have a drink containing alcohol?: Never 3. How often do you have six or more drinks on one occasion?: Never Total Score: 0 CADEN-7 AMB Questionnaire CADEN-7 Date CADEN - 7 assessed: 04/27/24 Feeling nervous, anxious, or on edge: 0 = Not at all Not being able to stop or control worryin = Not at all Worrying too much about different things: 0 = Not at all Trouble relaxin = Not at all Being so restless that it is hard to sit still: 0 = Not at all Becoming easily annoyed or irritable: 0 = Not at all Feeling afraid as if something awful might happen: 0 = Not at all Total CADEN-7 score (0-4 normal; 5-9 mild; 10-14 moderate; 15-21 severe): 0 Source: Developed by Shelia Ceja B.W. Ramana, Barney Alegria and colleagues, with an educational abigail from [employer]. Physical exam (Primary Care) Vital Signs: Last Vital Signs Pulse 69 03/02/25 09:23 Resp 14 03/02/25 09:23 BP 98/70 03/02/25 09:23 Pulse Ox 95 03/02/25 09:23 Oxygen Delivery Method Room Air 03/02/25 09:23 BMI result Body Mass Index 30.6 Tobacco/Smoking Status: Tobacco use Status Tobacco use date assessed 03/02/25 03/02/25 09:26 Patient Tobacco Use Status Current everyday Tobacco 03/02/25 09:26 Tobacco use type 10/26/24 09:15 e-Cigarette/Vaping Use Never Used 03/02/25 09:26 PHQ-9: PHQ-9 Score PHQ-9: Total score 0 03/02/25 09:35 Thrive Assessment: Date of Thrive Assessment Date Thrive assessed 10/26/24 03/02/25 09:22 Currently or been in a relationship where the following occur: No concerns reported Coding Level of Care Code Est Pt Level 4 (45236) Diagnoses Primary hypertension I10 Hypertension type: primary hypertension Mixed hyperlipidemia E78.2 Hyperlipidemia type: mixed hyperlipidemia Elevated PSA R97.20 History of back surgery Z98.890 Assessment & Plan Assessment & Plan (1) Hypertension: Code(s): I10 - Essential (primary) hypertension Category: Medical Qualifiers: Hypertension type: primary hypertension Qualified Code(s): I10 - Essential (primary) hypertension (2) Hyperlipidemia: Comment: continue statin Code(s): E78.5 - Hyperlipidemia, unspecified Category: Medical Qualifiers: Hyperlipidemia type: mixed hyperlipidemia Qualified Code(s): E78.2 - Mixed hyperlipidemia (3) Elevated PSA: Code(s): R97.20 - Elevated prostate specific antigen [PSA] Category: Medical (4) History of back surgery: Code(s): Z98.890 - Other specified postprocedural states Category: Surgical Plan HTN is well controlled on current medications Elevated psa-recheck. Referral if increased Back pain is stable on current medicaiton. Continue follow up back surgeon Declines flu vaccination Orders: Orders Prostate Specific Antigen 03/02/25 R97.20 - Elevated prostate specific antigen [PSA] Medications: Refilled cyclobenzaprine 10 mg PO BID PRN 90 tabs 3RF muscle spasm sertraline 25 mg PO DAILY 90 tabs 3RF On Hold amlodipine Hold Comment: Doctor's Order 5 mg PO DAILY 90 tabs 3RF
[2025-03-02 09:23] VITALS: BP 98/70; PULSE 69; RESP 14; O2SAT 95; BMI 30.6
--- OUTSIDE RECORDS SUMMARY | 2025-03-02 10:06 | XMS_ITS | Clinical Summary ---
Author Organization [facility] Address [address] [place] [address] [place] [address] Phone Care Team Providers Care Art Museum Docent Name Role Phone Trudy Jefferson MD Primary Care Provider Allergies No known active allergies Medications atorvastatin (LIPITOR) 20 MG tablet Take 20 mg by mouth daily. Active amLODIPine (NORVASC) 5 MG tablet Take 5 mg by mouth daily. Active sertraline (ZOLOFT) 25 MG tablet Take by mouth. 05/18/2023 Active lisinopril (PRINIVIL,ZESTR IL) 40 MG tablet Take 40 mg by mouth daily. Active loratadine (CLARITIN) 10 mg tablet Take 10 mg by mouth daily. Active acetaminophen (TYLENOL) 325 mg tablet Take 2 tablets (650 mg total) by mouth every 6 (six) hours as needed. 02/14/2024 Active oxyCODONE 5 MG immediate release tabletIndicatio ns:Spinal stenosis, lumbar region, with neurogenic claudication,Ac [place] post-operative pain,Status post spinal surgery Take 1 tablet (5 mg total) by mouth every 4 (four) hours as needed (acute postop back pain). Wean as tolerated. Partial fill ok 40 tablet 02/17/2024 Active cyclobenzaprine (FLEXERIL) 10 MG tabletIndicatio ns:Status post lumbar laminectomy,Lum bar radiculopathy,A cute post-operative pain Take 1 tablet (10 mg total) by mouth 2 (two) times a day as needed (postoperati ve muscle spasm). 40 tablet 03/30/2024 Active Active Problems Problem Noted Date Diagnosed Date Lumbar foraminal stenosis 02/12/2024 Lumbar stenosis with neurogenic claudication Pain pelvic 01/16/2024 HTN (hypertension) 01/16/2024 Encounters Date Type Department Care Team Description 01/26/2025 Orders Only [facility] Neurosurgery [address], [address] [place] [address] Bindu Carvalho FNP Left hip pain (Primary Dx) 12/07/2024 3:00 PM EDT Telemedicine - audio only [facility] Neurosurgery [address], [address] [place] [address] Lindsay Yap, Bindu Langley FNP Lumbar radiculopathy (Primary Dx) from Last 3 Months Immunizations Immunization Administration Dates Next Due Influenza High-Dose Trivalent Preservative Free IM 02/14/2024 Social History Tobacco Use Types Packs/Day Years Used Date Smoking Tobacco: Former Cigarettes 1 58.7 0 05/20/1965 - 01/24/2024 Smokeless Tobacco: Never Comments:informed by Doctor, needed to quit smoking to have surgery performed Alcohol Use Standard Drinks/Week Comments Never 0 (1 standard drink = 0.6 oz pur e alcohol) Child or Family Care Answer Date Record ed Do you have problems with on e of the following making it difficult for you to work, study, or receive health care? No 10/30/2024 Education Answer Date Recorded Are you interested in more education? Not on shilpa e 12/09/2023 Are you concerned about learning? Not on file 12/09/2023 No 12/09/2023 No 12/09/2023 Food Answer Date Recorded Within the past 6 months we worried whether our food would run out before we got money to buy more. Never True 10/30/2024 Within the past 6 months the food we bought just didn't last and we didn't have enough money to get more. Never True Residential Stability Answer Date Recor ded What is your housing situation today? I have lit diaz 10/30/2024 How many times have you move d in the past 12 months? Zero (I did not move) 10/30/2024 Paying for Meds Answer Date Recorded Do you have trouble paying for medicines? No 10/30/2024 Paying Utility Bills Answer Date Record ed Do you have trouble paying your heating or elect ricity bill? No 10/30/2024 Transportation Answer Date Recorded Has the lack of transportati on kept you from medical appointments or from getting medications? No 10/30/2024 Digital Access Answer Date Recorded No 10/30/2024 Yes 10/30/2024 Do you have reliable internet access at home? Ye s 10/30/2024 Do you have a device (e.g., phone, tablet, computer) with a working camera? Yes 10/30/2024 Intimate Partner Violence Answer Date R ecorded Are you denied basic needs s uch as food, clothing, or medical care? No 02/12/2024 In the past 12 months have y ou been in a relationship with a person who hurts, threatens, or tries to control you? No 02/12/2024 Are you denied basic needs s uch as food, clothing, or medical care? No 02/12/2024 In the past 12 months have y ou been in a relationship with a person who hurts, threatens, or tries to control you? No 02/12/2024 Sex and Gender Information Value Date Recorded Sex Assigned at Not on file Legal Sex Male 1:26 PM EDT Gender Identity Not on file Sexual Orientation Not on file Last Filed Vital Signs Vital Sign Reading Time Taken Comments Blood Pressure 113/73 02/14/2024 9:00 AM EDT Pulse 62 02/14/2024 9:00 AM EDT Temperature 36.7 C (98 F) 02/14/2024 7:29 AM EDT Respiratory Rate 18 02/14/2024 5:33 AM EDT Oxygen Saturation 96% 02/14/2024 7:29 AM EDT Inhaled Oxygen Concentration - - Weight 103.4 kg (228 lb) 11/16/2024 3:08 PM EDT Height 182.9 cm (6') 11/16/2024 3:08 PM EDT Body Mass Index 30.92 11/16/2024 3:08 PM EDT Plan of Treatment Health Maintenance Due Date Last Done Comments BLOOD PRESSURE 1952 LIPID PANEL 1952 DEPRESSION SCREENING 1964 SMOKING Hx and SMOKELESS TOBACCO SCREENING 1965 HEPATITIS C SCREENING 1970 COLOGUARD 1997 COLONOSCOPY 1997 COLORECTAL CANCER SCREENING 1997 FIT TEST 1997 FOBT 1997 SIGMOIDOSCOPY 1997 VIRTUAL COLONOSCOPY 1997 ZOSTER VACCINES (2 of 3) 04/08/2012 02/12/2012 ABDOMINAL AORTIC ANEURYSM (AAA) SCREENING 2017 Adult Td,Tdap Booster 12/05/2023 12/04/2013 INFLUENZA VACCINE (#1) 2024 , 02/28/2023, 03/20/2022, Additional history exists COVID-19 VACCINE (2 - 2024- season) 2025 12/09/2020 CREATININE LEVEL 02/13/2025 02/14/2024, , 02/12/2024, Additional history exists POTASSIUM LEVEL 02/13/2025 02/14/2024, 01/19, 02/12/2024, Additional history exists RSV VACCINE (1 - 1-dose 75+ series) 2027 PNEUMOCOCCAL VACCINES (50+ years) Completed 04/02/2020, 03/14/2018, 03/15/2014 HEPATITIS A VACCINES Aged Out No long er eligible based on patient's age to complete this topic HIB VACCINES Aged Out No longer eligi ble based on patient's age to complete this topic MENINGOCOCCAL VACCINES (ACWY) Aged Out No longer eligible based on patient's age to complete this topic MENINGOCOCCAL VACCINES (B) Aged Out N o longer eligible based on patient's age to complete this topic Medical Devices Not on file Procedures Procedure Name Priority Date/Time Associated Diagnosis Comments BASIC METABOLIC PANEL Routine 02/14/2024 5:48 AM EDT from Last 3 Months or Most Recently Relevant to Health Maintenance Results * Basic metabolic panel (02/14/2024 5:48 AM EDT) SODIUM 138 135 - 145 mmol/L [facility] POTASSIUM 4.3 3.4 - 5.0 mmol/L [facility] CHLORIDE 106 98 - 108 mmol/L [facility] CO2 24 23 - 32 mmol/L [facility] BUN 18 8 - 25 mg/dL [facility] CREATININE 1.07 0.60 - 1.50 mg/dL [facility] GLUCOSE 96 70 - 110 mg/dL [facility] CALCIUM 9.6 8.5 - 10.5 mg/dL [facility] EGFR 74 >59 mL/min/1.7 3m2 [facility] Comment:Estimated glomerular filtration rate calculated using the CKD-EPI refit equation. ANION GAP 8 3 - 17 mmol/L [facility] Blood 02/14/2024 5:48 AM EDT 02/14/2024 5:57 AM EDT Brandon Malagon PA-C LAB BLOOD ORDERABLES Final Re sult [address] [address] from Last 3 Months or Most Recently Relevant to Health Maintenance Insurance MEDICARE PART A & B [facility] MEDICARE SUPPLEMENT MEDICARE PART A & B MEDICARE SUPPLEMENT MEDICARE PART A & B MEDICARE SUPPLEMENT MEDICARE PART A & B MEDICARE SUPPLEMENT MEDICARE PART A & B Member Subscriber Plan / Payer (Ef fective 2017-Present) Name:Sonido Gage Member ID:[id number] Relation to Subscriber:Self Name:Sonido Gage Subscriber ID:[id number] Payer ID:[id number] Group ID:Not on file Type:Medicare Address: [employer] [address] MEDICARE SUPPLEMENT MEDICARE PART A & B [id number] [place] [address] MEDICARE SUPPLEMENT Advance Directives For more information, please contact: [phone] (9AM - 5PM [facility], Saturday-Saturday) Documents on File Type Date Recorded Patient Sociology Research Assistant Expl anation Healthcare Proxy 02/17/2024 3:57 PM * Full Code (Latest Code Status on File) Date Activated Date Inactivated Comments 02/11/2024 11:06 AM Question Answer Comments Code Status Confirmed With: Patient Code Status Communicated To: Inpatient Attending Care Teams Art Museum Docent Relationship Specialty Start Date End Date Trudy Jefferson MD PCP - General Internal Medicine 11/29/23 Additional Source Comments The information contained in this document represents components of the legal health record. It is not the complete legal health record.[facility]
--- OUTSIDE RECORDS SUMMARY | 2025-03-02 10:06 | XMS_ITS | Encounter Summary ---
Author Organization [facility] Address [facility] [address] [place] [address] Phone Care Team Providers Care Cabinet Finisher Name Role Phone Trudy Jefferson MD Primary Care Provider [phone] Encounter Details Date Type Department Care Team (Late st Contact Info) Description 02/11/2024 Procedure Pass [facility] PERIOPERATIVE DEPT [address] [place] [id number] Social History Tobacco Use Types Packs/Day Years Used Date Smoking Tobacco: Former Cigarettes 1 58.7 0 05/20/1965 - 01/24/2024 Smokeless Tobacco: Never Comments:informed by Doctor, needed to quit smoking to have surgery performed Alcohol Use Standard Drinks/Week Comments Never 0 (1 standard drink = 0.6 oz pur e alcohol) Education Answer Date Recorded Are you interested in more education? Not on shilpa e 12/09/2023 Are you concerned about learning? Not on file 12/09/2023 No 12/09/2023 No 12/09/2023 Digital Access Answer Date Recorded No 12/09/2023 No 12/09/2023 Reliable internet access at home? Not on file 12/09/2023 Device with a working camera? Not on file Intimate Partner Violence Answer Date R ecorded [...] on file Sexual Orientation Not on file documented as of this encounter Functional Status * Calculated C-SSRS Risk Score (Lifetime/Recent) Answer Date of Assessment Author No Risk Indicated 02/12/2024 4:00 PM EDT Sammi Wong RN * [place] Suicide Severity Rating Scale (Screener/Recent Self-Report) Question Answer Date of Assessment Author 1. Wish to be (Past 1 Month) No 02/12/2024 4:00 PM EDT Sammi Alberts RN 2. Non-Specific Active Suicidal Thoughts (Past 1 Month) No 02/12/2024 4:00 PM EDT Sammi Alberts RN 6. Suicidal Behavior (Lifetime) No 02/12/2024 4:00 PM EDT Sammi Alberts RN documented as of this encounter Plan of Treatment Not on file documented as of this encounter Visit Diagnoses Not on filedocumented in this encounter Care Teams Cabinet Finisher Relationship Specialty Start Date End Date Trudy Jefferson MD PCP - General Internal Medicine 11/29/23 documented as of this encounter Additional Source Comments The information contained in this document represents components of the legal health record. It is not the complete legal health record.[facility]
--- OUTSIDE RECORDS SUMMARY | 2025-03-02 10:06 | XMS_ITS | Encounter Summary ---
Author Organization [facility] Address [address] [place] [address] Phone Care Team Providers Care Lay Out Former Name Role Phone Trudy Jefferson MD Primary Care Provider [phone] Encounter Details Date Type Department Care Team (Late st Contact Info) Description 10/30/2024 Procedure Pass [facility], [address] [address] Social History Tobacco Use Types Packs/Day Years [...] on file documented as of this encounter Plan of Treatment Not on file documented as of this encounter Visit Diagnoses Not on filedocumented in this encounter Care Teams Lay Out Former Relationship Specialty Start Date End Date Trudy Jefferson MD PCP - General Internal Medicine 11/29/23 documented as of this encounter Additional Source Comments The information contained in this document represents components of the legal health record. It is not the complete legal health record.[facility]
--- OUTSIDE RECORDS SUMMARY | 2025-03-02 10:06 | XMS_ITS | Clinical Summary ---
Author Organization [facility] Address [address] [place] [address] Care Team Providers Care Electronic Security Technician Name Role Phone Krupa Castaneda MD Primary Care Provider [phone] Surgical History Surgery Date Site/Laterality Comments COLONOSCOPY [...] 1 Relation Name Status Comments Brother (Age CT) half broth er; CT; h/o rheumatic fever Father (Age 65) [place] Mother (Age 60) liver cirr hosis Sister [...] Zoster Vaccines (2 of 3) 04/08/2012 02/12/2012 DTaP,Tdap,and Td Vaccines (2 - Td or Tdap) 12/05/2023 12/04/2013 Depression Screening 05/20/2024 COVID-19 Vaccine (1 - season) 2025 Influenza Vaccine (#1) 2025 2, 02/20/2021, 02/17/2021, Additional history exists RSV Immunization [...] age to complete this topic Care Teams Electronic Security Technician Relationship Specialty Start Date End Date Krupa Castaneda MD PCP - General Internal Medicine 05/18/16
== END 2025-03-02 09:44 | disposition home or self-care (01) ==
LOC: HO.HMCFM 09:17
PROVIDERS: PCP Internal Medicine; Visit Provider Internal Medicine
DX: I10 Essential (primary) hypertension (principal); E78.2 Mixed hyperlipidemia; R97.20 Elevated prostate specific antigen [PSA]; Z98.890 Other specified postprocedural states

== ENCOUNTER 2025-03-02 09:16 | Outpatient (REF) | payer MEDICARE, OTHER, SELFPAY ==
[2025-03-02 12:14] LABS: Alanine Aminotransferase 26 U/L (0-40); Aspartate Amino Transferase 25 U/L (5-37)
[2025-03-02 12:35] LABS: Prostate Specific Antigen 4.19 ng/mL (<0.05-4.0)
== END 2025-03-02 09:17 | disposition home or self-care (01) ==
LOC: HO.WFDLDS 09:16
PROVIDERS: Physician Assistant Medical; PCP Internal Medicine; Visit Provider Internal Medicine
DX: Z12.5 Encounter for screening for malignant neoplasm of prostate (principal); I10 Essential (primary) hypertension; E78.2 Mixed hyperlipidemia; R79.89 Other specified abnormal findings of blood chemistry; R97.20 Elevated prostate specific antigen [PSA]; Z98.890 Other specified postprocedural states
CPT/HCPCS: 36415; 84153; 84450; 84460; 99212